=== PATIENT | male | born 1990 | race Caucasian/White ===

== ENCOUNTER 2017-10-10 20:55 | Emergency (ER) | payer OTHER ==
[~2017-10-10] VITALS: Ht 182.9 cm; Wt 109.3 kg
[~2017-10-10 20:55] MED LIST: LEVSIN/SL0.125 MG PO; PROTONIX20 MG PO
== END 2017-10-11 00:28 | disposition home or self-care (01) ==
LOC: ER 20:55
DX: G44.209 Tension-type headache, unspecified, not intractable (principal)

== ENCOUNTER 2019-03-27 15:02 | Emergency (ER) | payer OTHER ==
[~2019-03-27] VITALS: Ht 180.3 cm; Wt 102.1 kg
== END 2019-03-27 17:11 | disposition home or self-care (01) ==
LOC: ER 15:02
DX: J03.80 Acute tonsillitis due to other specified organisms (principal)

== ENCOUNTER 2019-06-19 12:14 | Emergency (ER) | payer OTHER ==
[~2019-06-19] VITALS: Ht 182.9 cm; Wt 104.3 kg
== END 2019-06-19 17:50 | disposition home or self-care (01) ==
LOC: ER 12:14
DX: J11.1 Influenza due to unidentified influenza virus with other respiratory manifestations (principal)